=== PATIENT | male | born 1960 | race Caucasian/White ===

== ENCOUNTER → 2023-11-18 | Outpatient (CLI) | payer MEDICARE, SELFPAY ==
--- NOTE | 2023-11-18 12:56 | VDUE_ITS ---
Reason For Study: Renal Failure / Pre-Op Exam Right Lower Arm Left Arm Proximal Radial artery diameter 82.0 mm. Left Brachial artery diameter 0.48 x 0.52 mm. Proximal Radial artery waveform is Left Brachial artery waveform is triphasic . triphasic . Brachial A PSV = 59.9 cm/s. Radial A PSV= 82.0 cm/s. Cephalic Vein at distal forearm measures 0.13 Right Arm x 0.14 mm. Right Brachial artery diameter 0.54 x 0.52 Cephalic Vein at mid forearm measures 0.13 x mm. 0.16 mm. Right Brachial artery waveform is triphasic . Cephalic Vein proximal forearm measures 0.20 Brachial A PSV = 58.6 cm/s. x 0.19 mm. Cephalic Vein at distal forearm measures 0.15 Cephalic Vein distal upper arm measures 0.17 x 0.14 mm. x 0.18 mm. Cephalic Vein at mid forearm measures 0.20x Cephalic Vein at mid upper arm measures 0.12 0.25 mm. x 0.15 mm. Cephalic Vein proximal forearm measures 0.19 Cephalic Vein at proximal upper arm measures x 0.20 mm. 0.31 x 0.33 mm. Cephalic Vein distal upper arm measures 0.25 Left cephalic vein is compressible. x 0.29 mm. Proximal Basilic vein measures 0.52 x 0.57 Cephalic Vein at mid upper arm measures 0.23 mm. x 0.22 mm. Mid Basilic vein measures 0.30 x 0.33 mm. Cephalic Vein at proximal upper arm measures Distal Basilic vein measures 0.14 x 0.17 mm. 0.24 x 0.24 mm. Left basilic vein is compressible. Right cephalic vein is compressible. Left Lower Arm Proximal Basilic vein measures 0.40 x 0.41 Proximal Radial artery diameter 0.21 x 0.22 mm. mm. Mid Basilic vein measures 0.33 x 0.35 mm. Proximal Radial artery waveform is Distal Basilic vein measures 0.30 x 0.34 mm. triphasic . Right basilic vein is compressible. Radial A PSV = 78.1 cm/s. VL/Dialysis Vein Map PRE-OP BILAT Interpretation Summary Patent and compressible bilateral upper extremity cephalic and basilic veins wi th dimensions as noted. The right upper arm cephalic vein appears to be borderline diameter. The right forearm cephalic vein appears small. The right upper extremity basilic vein appears to be adequate. The left upper extremity cephalic vein appears small throughout. The left upper arm basilic vein appears to be adequate Bilateral radial and brachial arteries have normal diameter and flow. Ordering Physician: Shia Martinez Referring Physician: [facility] Performed By: Jh Fierro RVT ???
== END | disposition home or self-care (01) ==
PROVIDERS: Referring Provider Surgery; Visit Provider Surgery
DX: Z01.818 Encounter for other preprocedural examination (principal); N18.6 End stage renal disease
CPT/HCPCS: 93985